=== PATIENT | female | born 1985 | race Caucasian/White ===

== ENCOUNTER 2024-08-05 12:12 | Emergency (ER) | payer MEDICAID ==
[~2024-08-05] VITALS: Ht 157.5 cm; Wt 69.0 kg
[2024-08-05 12:40] VITALS: BP 158/80; PULSE 76; RESP 16; TEMP 98.2; O2SAT 100
[2024-08-05] MEDS ORDERED: ACET325T52 MT (14:54)
== END 2024-08-05 15:20 | disposition home or self-care (01) ==
LOC: ER 13:19
DX: S60.940A Unspecified superficial injury of right index finger, initial encounter (principal); X58.XXXA Exposure to other specified factors, initial encounter; Y93.89 Activity, other specified; Y92.89 Other specified places as the place of occurrence of the external cause; Y99.8 Other external cause status
CPT/HCPCS: 73140; 99283